=== PATIENT | male | born 1975 | race Caucasian/White ===

== ENCOUNTER 2025-03-30 07:35 | Emergency (ER) | payer MEDICAID ==
[~2025-03-30] VITALS: Ht 172.7 cm; Wt 91.0 kg
[2025-03-30 07:36] VITALS: BP 0/0; PULSE 0; RESP 0; O2SAT 0
[2025-03-30 07:45] VITALS: TEMP 36.3
[2025-03-30] MEDS ORDERED: AMIODARONE HCL 50MG/ML 3ML VIAL IV ONE (14:22)
== END 2025-03-30 08:00 ==
LOC: ER 07:35
DX: I46.9 Cardiac arrest, cause unspecified (principal); E11.9 Type 2 diabetes mellitus without complications; I25.2 Old myocardial infarction; Z88.0 Allergy status to penicillin; Z86.73 Personal history of transient ischemic attack (TIA), and cerebral infarction without residual deficits
CPT/HCPCS: 82962; 92950 ×2; 31500 ×2; 99291; J0282; J3490 ×2; Z7610 ×2